=== PATIENT | male | born 1970 | race Caucasian/White ===

== ENCOUNTER → 2020-08-19 | Outpatient (CLI) | payer OTHER ==
--- NOTE | 2020-08-19 13:48 | RAD ---
EXAM: Chest, 2 views. HISTORY: Cough and congestion. COMPARISON: None. FINDINGS: 2 views of chest are obtained. There is no infiltrate, pleural effusion or pneumothorax. There is retrocardiac opacity due to asymmetric overlying soft tissue and pulmonary vascular shadows. The heart is normal in size. IMPRESSION: No convincing acute pulmonary finding. Electronically signed by: Velvet Nava MD (08/19/2020 1:45 PM) [id number]
== END ==
LOC: DXRAD 12:59
DX: R05 Cough (principal); R06.02 Shortness of breath
CPT/HCPCS: 71046